=== PATIENT | female | born 1960 | race Caucasian/White ===

== ENCOUNTER 2019-08-12 10:27 | Emergency (ER) | payer MEDICARE, MEDICAID ==
[~2019-08-12] VITALS: Ht 157.5 cm; Wt 104.6 kg
[2019-08-12 10:40] VITALS: BP 116/73
[2019-08-12] MEDS ORDERED: DOXY100C2 PO (13:00)
[2019-08-12] MEDS ORDERED: BENZ-16 PO (13:00)
[2019-08-12] MEDS ORDERED: ERYT1OIN6 LEFTEYE (13:01)
== END 2019-08-12 13:18 | disposition home or self-care (01) ==
LOC: ER 10:28
DX: J20.9 Acute bronchitis, unspecified (principal); H00.015 Hordeolum externum left lower eyelid
CPT/HCPCS: 99283

== ENCOUNTER 2023-06-09 12:05 | Emergency (ER) | payer BC, MEDICAID ==
[~2023-06-09] VITALS: Ht 162.6 cm; Wt 105.7 kg
[2023-06-09 12:07] VITALS: BP 148/89; PULSE 93; RESP 16; TEMP 98.2; O2SAT 94
[2023-06-09] MEDS ORDERED: LIDOcaine 5% patch TP STA (12:37)
== END 2023-06-09 13:33 | disposition home or self-care (01) ==
LOC: ER 12:05
DX: M54.59 Other low back pain (principal)
CPT/HCPCS: 99282; 99283